=== PATIENT | male | born 1965 | race Caucasian/White ===

== ENCOUNTER 2021-12-17 12:01 | Inpatient (IN) | payer OTHER ==
[2021-12-17 13:19] VITALS: BMI 31.5
[2021-12-17] MEDS ORDERED: LOPERAMIDE HCL 2 MG CAPSULE PO PRN (14:38)
[2021-12-17] MEDS ORDERED: DICYCLOMINE HCL 10 MG CAPSULE PO PRN (14:38)
[2021-12-17] MEDS ORDERED: BENZOCAINE/MENTHOL (CHLORASEPTIC ) LOZENGE MM PRN (14:38)
[2021-12-17] MEDS ORDERED: MAG HYDROX/AL HYDROX/SIMETH 30 ML UNIT-DOSE CUP PO PRN (14:38)
[2021-12-17] MEDS ORDERED: diazePAM 5 MG TABLET PO PRN (14:38)
[2021-12-17] MEDS ORDERED: ONDANSETRON *ODT* 4 MG TABLET SL PRN (14:38)
[2021-12-17] MEDS ORDERED: IBUPROFEN 600 MG TABLET (FP) PO PRN (14:38)
[2021-12-17] MEDS ORDERED: MAGNESIUM CITRATE 300 ML BOTTLE PO PRN (14:38)
[2021-12-17] MEDS ORDERED: MAGNESIUM HYDROX 2400MG/30ML ORAL SUSPENSION 30 ML CUP PO PRN (14:38)
[2021-12-17] MEDS ORDERED: BISMUTH SUBSALICYLATE 262 MG/15 ML BTL PO PRN (14:38)
[2021-12-17] MEDS: METHOCARBAMOL 500 MG TABLET PO PRN (15:25)
[2021-12-17] MEDS: PRENATAL VITAMINS W/ FOLIC ACID TABLET (FP) PO SCH (15:25)
[2021-12-17] MEDS: hydrOXYzine PAMOATE 25 MG CAPSULE (FP) PO SCH ×2 (18:04→22:49)
[2021-12-17] MEDS: diazePAM 5 MG TABLET PO SCH (22:49)
[2021-12-17] MEDS: AMIODARONE HCL 200 MG TABLET PO SCH (22:49)
[2021-12-17] MEDS: THIAMINE HCL 100 MG TABLET (FP) PO SCH (22:50)
[2021-12-17] MEDS: MELATONIN 5 MG TABLETS PO SCH (23:10)
[2021-12-18] MEDS: diazePAM 5 MG TABLET PO SCH ×3 (05:10→20:59)
[2021-12-18] MEDS: hydrOXYzine PAMOATE 25 MG CAPSULE (FP) PO SCH ×5 (05:10→22:22)
[2021-12-18] MEDS ORDERED: methaDONE HCL 10 MG TABLET PO SCH (07:45)
[2021-12-18] MEDS: METHOCARBAMOL 500 MG TABLET PO PRN (09:12)
[2021-12-18] MEDS: methaDONE HCL 10 MG TABLET PO SCH (09:12)
[2021-12-18] MEDS: PRENATAL VITAMINS W/ FOLIC ACID TABLET (FP) PO SCH (11:04)
[2021-12-18] MEDS: AMIODARONE HCL 200 MG TABLET PO SCH ×2 (11:04→22:22)
[2021-12-18] MEDS: DIGOXIN 0.25 MG TABLET PO SCH (11:05)
[2021-12-18 11:54] LABS: HEMATOCRIT 42.4 % (35.4-49); HEMOGLOBIN 14.3 GM/dL (11.7-16.9); MCH 32.1 pg (25.7-33.7); MCHC 33.6 g/dl (32.0-35.9); MEAN CELL VOLUME 95.4 fl (80-96); MEAN PLT VOLUME 8.6 fl (7.5-11.1); PLATELET COUNT 226 10^3/uL (134-434); RBC 4.45 M/mm3 (4.00-5.60); RDW 13.7 % (11.9-15.9); WHITE BLOOD COUNT 6.8 K/mm3 (4.0-10.0)
[2021-12-18 12:14] LABS: CALCIUM 9.5 mg/dL (8.5-10.1)
[2021-12-18 12:15] LABS: ALBUMIN 3.8 g/dl (3.4-5.0)
[2021-12-18 12:19] LABS: BILIRUBIN,TOTAL 1.1 mg/dL (0.2-1); TOT PROT 7.2 g/dl (6.4-8.2)
[2021-12-18] MEDS: MELATONIN 5 MG TABLETS PO SCH (22:22)
[2021-12-18] MEDS: THIAMINE HCL 100 MG TABLET (FP) PO SCH (22:22)
[2021-12-19] MEDS: methaDONE HCL 10 MG TABLET PO SCH (05:48)
[2021-12-19] MEDS: diazePAM 5 MG TABLET PO SCH ×4 (05:53→22:58)
[2021-12-19] MEDS: hydrOXYzine PAMOATE 25 MG CAPSULE (FP) PO SCH ×5 (05:53→23:13)
[2021-12-19 10:34] LABS: BLOOD UREA NITROGEN 17.9 mg/dL (7-18)
[2021-12-19] MEDS: AMIODARONE HCL 200 MG TABLET PO SCH ×2 (10:44→22:55)
[2021-12-19] MEDS: DIGOXIN 0.25 MG TABLET PO SCH ×2 (10:45→13:04)
[2021-12-19] MEDS: PRENATAL VITAMINS W/ FOLIC ACID TABLET (FP) PO SCH (10:45)
[2021-12-19] MEDS: MELATONIN 5 MG TABLETS PO SCH (22:58)
[2021-12-19] MEDS: THIAMINE HCL 100 MG TABLET (FP) PO SCH (23:13)
[2021-12-20] MEDS: methaDONE HCL 10 MG TABLET PO SCH (06:43)
[2021-12-20] MEDS: diazePAM 5 MG TABLET PO SCH ×2 (06:45→17:30)
[2021-12-20] MEDS: hydrOXYzine PAMOATE 25 MG CAPSULE (FP) PO SCH ×5 (06:45→23:08)
[2021-12-20] MEDS: DIGOXIN 0.25 MG TABLET PO SCH (11:02)
[2021-12-20] MEDS: AMIODARONE HCL 200 MG TABLET PO SCH ×2 (11:02→22:11)
[2021-12-20] MEDS: PRENATAL VITAMINS W/ FOLIC ACID TABLET (FP) PO SCH (11:02)
[2021-12-20] MEDS: THIAMINE HCL 100 MG TABLET (FP) PO SCH (22:11)
[2021-12-20] MEDS: MELATONIN 5 MG TABLETS PO SCH (22:12)
[2021-12-21] MEDS: methaDONE HCL 10 MG TABLET PO SCH (05:05)
[2021-12-21] MEDS: hydrOXYzine PAMOATE 25 MG CAPSULE (FP) PO SCH ×5 (05:06→22:16)
[2021-12-21] MEDS ORDERED: diazePAM 5 MG TABLET PO ONE (06:00)
[2021-12-21] MEDS: AMIODARONE HCL 200 MG TABLET PO SCH ×2 (10:03→22:15)
[2021-12-21] MEDS: PRENATAL VITAMINS W/ FOLIC ACID TABLET (FP) PO SCH (10:04)
[2021-12-21] MEDS: DIGOXIN 0.25 MG TABLET PO SCH (10:04)
[2021-12-21] MEDS: NICOTINE 10 MG CARTRIDGE (INHALER) IH PRN ×2 (14:09→23:03)
[2021-12-21 21:20] VITALS: BP 146/69; PULSE 92; RESP 18; TEMP 97.5
[2021-12-21] MEDS: THIAMINE HCL 100 MG TABLET (FP) PO SCH (22:15)
[2021-12-21] MEDS: MELATONIN 5 MG TABLETS PO SCH (22:16)
[2021-12-22] MEDS: methaDONE HCL 10 MG TABLET PO SCH (06:13)
[2021-12-22] MEDS: hydrOXYzine PAMOATE 25 MG CAPSULE (FP) PO SCH (06:14)
== END 2021-12-22 08:35 | disposition home or self-care (01) | DRG 773 ==
LOC: YASAS 12:01 → Y6N 13:47
PROVIDERS: ADMIT Allergy & Immunology; ATTEND Surgery
PROC: HZ2ZZZZ Detoxification Services for Substance Abuse Treatment (ICD-10-PCS; principal; 2021-12-17)
DX: F11.23 Opioid dependence with withdrawal (principal); F13.20 Sedative, hypnotic or anxiolytic dependence, uncomplicated; F14.20 Cocaine dependence, uncomplicated; F17.210 Nicotine dependence, cigarettes, uncomplicated; I11.0 Hypertensive heart disease with heart failure; I50.9 Heart failure, unspecified; I48.91 Unspecified atrial fibrillation; E11.9 Type 2 diabetes mellitus without complications; Z95.0 Presence of cardiac pacemaker; Z88.5 Allergy status to narcotic agent; Z88.6 Allergy status to analgesic agent
CPT/HCPCS: 36415; 80053; 82947; 82962; 83036; 84520; 85027; 86780; 93005; 93010; C9803-CS; U0003; U0005